=== PATIENT | male | born 1960 | race Caucasian/White ===

== ENCOUNTER 2022-04-06 00:56 | Emergency (ER) | payer OTHER ==
[2022-04-06] MEDS ORDERED: ONDANSETRON 4 MG/2 ML VIAL IVP STA (01:37)
[2022-04-06] MEDS ORDERED: MORPHINE 2 MG/ML CARPUJECT IVP STA (01:37)
[2022-04-06] MEDS ORDERED: SODIUM CHLORIDE 0.9% 1,000 ML IV STA (01:37)
--- NOTE | 2022-04-06 01:42 | ED Physician Documentation ---
PD HPI ABD PAIN - Stated complaint Stated Complaint: chest pain - Chief complaint Chief Complaint: Abd Pain - History obtained from History obtained from: Patient - Additional information Additional information: Patient is a 61-year-old male with a history of coronary artery disease presenting for evaluation of left flank pain that woke him up approximately 1 hour ago. It is throbbing in nature. It does not radiate. Nothing makes it better or worse. He has associated nausea and dry heaves. He denies dysuria or hematuria. He reported chills earlier. He denies known fever, chest pain, difficulty breathing. He denies any activity that would have triggered this pain In his back.He denies any discomfort to his lower extremities. He has not taken anything for the pain. He denies a history of kidney stones. Review of Systems Constitutional: denies: Fever Nose: denies: Congestion Cardiac: denies: Chest pain / pressure Respiratory: denies: Dyspnea, Cough GI: reports: Nausea, Vomiting (Dry heaves). denies: Abdominal Pain, Bloody / black stool : denies: Dysuria, Hematuria Skin: denies: Rash Musculoskeletal: reports: Back pain (Left flank) Neurologic: denies: Headache, Head injury PD PAST MEDICAL HISTORY - Present Medications Home Medications: Ambulatory Orders Medication Instructions Recorded Confirmed Ondansetron Odt [Zofran] 4 mg TL Q6H PRN #10 tablet 04/06/22 Oxycodone HCl/Acetaminophen 1 each PO Q6H PRN #14 tablet 04/06/22 [Percocet 5-325 mg Tablet] Tamsulosin [Flomax] 0.4 mg PO DAILY #14 cap 04/06/22 - Allergies Allergies/Adverse Reactions: Allergies Allergy/AdvReac Type Severity Reaction Status Date / Time No Known Drug Allergies Allergy Verified 04/06/22 01:51 PD ED PE NORMAL - General General: Alert and oriented X 3, No acute distress, Well developed/nourished - HEENT HEENT: Atraumatic, Moist mucous membranes - Neck Neck: Supple, no meningeal sign - Cardiac Cardiac: RRR, No murmur, Strong equal pulses - Respiratory Respiratory: No respiratory distress, Clear bilaterally - Abdomen Abdomen: Normal bowel sounds, Soft, Non tender, Non distended - Back Back: No spinal TTP, Other (Left CVA tenderness) - Derm Derm: Warm and dry - Extremities Extremities: No edema - Neuro Neuro: Normal speech Results - Vitals Vitals: Vital Signs - 24 hr 04/06/22 04/06/22 04/06/22 01:19 02:32 03:00 Temperature 37.3 C Heart Rate 80 88 85 Respiratory 20 22 14 Rate Blood Pressure 158/84 H 101/53 L O2 Saturation 96 99 98 04/06/22 03:48 Temperature Heart Rate 84 Respiratory 16 Rate Blood Pressure 101/53 L O2 Saturation 96 Oxygen O2 Source Room air - EKG (time done) 0142 Rate: Rate (enter#) (78) Rhythm: NSR [place]: Normal Ischemia: No: ST elevation c/w ischemia - Labs Labs: Laboratory Tests 04/06/22 04/06/22 04/06/22 01:43 01:43 02:40 WBC 13.0 H RBC 4.21 L Hgb 13.6 L Hct 40.0 L MCV 95.0 H MCH 32.3 H MCHC 34.0 RDW 13.2 Plt Count 310 MPV 8.9 Neut # (Auto) 6.9 H Lymph # (Auto) 4.5 H [place] # (Auto) 1.2 H Eos # (Auto) 0.3 Baso # (Auto) 0.0 Absolute Nucleated RBC 0.00 Nucleated RBC % 0.0 Sodium 141 Potassium 3.9 Chloride 104 Carbon Dioxide 28 Anion Gap 9.0 BUN 21 H Creatinine 0.9 Estimated GFR (MDRD) 86 L Glucose 137 H Calcium 9.4 Total Bilirubin 0.2 AST 20 ALT 21 Alkaline Phosphatase 47 Total Protein 7.2 Albumin 4.4 Globulin 2.8 Albumin/Globulin Ratio 1.6 Lipase 43 Urine Color DARK YELLOW Urine Clarity HAZY Urine pH 5.5 Ur Specific [place] >=1.030 H Urine Protein 100 H Urine Glucose (UA) 250 H Urine Ketones TRACE Urine Occult Blood LARGE H Urine Nitrite NEGATIVE Urine Bilirubin NEGATIVE Urine Urobilinogen 0.2 (NORMAL) Ur Leukocyte Esterase NEGATIVE Urine RBC TNTC H Urine WBC 0-3 Ur Squamous Epith Cells RARE Squamous Urine Crystals 3-5 Calcium Oxalate Urine Bacteria Rare Urine Mucus Moderate Strands Ur Microscopic Review INDICATED Urine Culture Comments NOT INDICATED PD MEDICAL DECISION MAKING - ED course Complexity details: reviewed results, re-evaluated patient, d/w patient, d/w family ED course: Patient with left flank pain. EKG was ordered from triage. Doubt ACS as the cause of his symptoms. Labs and CT scan were obtained and work-up revealed 2 mm left ureter stone. Patient does not appear septic. Normal renal function. Pain was well controlled. Discussed management of ureter stone as well as need for follow-up. Patient is comfortable with plan for discharge and advised on return precautions. Departure - Departure Disposition: 01 Home, Self Care Clinical Impression: Left ureteral stone Condition: Stable Instructions: ED Stone Renal W Colic Prescriptions: Tamsulosin [Flomax] 0.4 mg PO DAILY #14 cap Oxycodone HCl/Acetaminophen [Percocet 5-325 mg Tablet] 1 each PO Q6H PRN #14 tablet PRN Reason: pain Ondansetron Odt [Zofran] 4 mg TL Q6H PRN #10 tablet PRN Reason: Nausea / Vomiting Comments: You were evaluated for pain to your left flank and found to have a 2 mm stone in your left ureter. This is a stone coming out of your kidney and making its way to your bladder. I have prescribed medications to help you pass the stone including a narcotic medication, something for nausea and Flomax. Please make sure to drink plenty of water. Please call [place] for a close follow-up appointment. If you have any worsening symptoms such as fever, increased pain, vomiting that is not controlled with your medication then please return to the emergency department. I have sent your prescriptions to [facility] in [place]. I am prescribing a short course of narcotic pain medication for you. These are potentially dangerous and addictive medications that should be used carefully. These medications may constipate you. Take an [id number] stool softener (docusate) twice daily with plenty of water while taking these medications. If you go 24 hours without a bowel movement, take [id number] miralax, per package instructions. Do not drink or drive while taking these medications. If you received narcotic or sedating medications while in the emergency department, do not drive for 24 hours. Store this medication in a safe, secure place and out of reach of children. It is a violation of federal law to give or sell this medication to another person or to use in a manner other than prescribed. The ED will not refill narcotic prescriptions, including prescriptions lost or stolen. To dispose of unwanted medications: 1. [facility] at [address] in [place] has a medication drop box. They accept prescription medications (in pill form) Friday through Friday 9:00 a.m. to 5:00 p.m. 2. The [facility] [employer] accepts prescription medications (in pill form only) for disposal year round. Call for more information. 3. Contact the [facility] for the next [facility] sponsored prescription drug collection event. , [phone], or [phone]; Note that many narcotic pain relievers also contain Tylenol/acetaminophen. Please ensure that your total dose of acetaminophen from all sources does not exceed 3 g (3000 mg) per day. Discharge Date/Time: 04/06/22 04:20
[2022-04-06 01:55] LABS: BASOPHILS % (AUTO) 0.3 %; EOSINOPHILS # (AUTO) 0.3 10^3/uL (0.0-0.7); HGB - HEMOGLOBIN 13.6 g/dL (14.0-18.0); LYMPHOCYTES # (AUTO) 4.5 10^3/uL (1.5-3.5); LYMPHOCYTES % (AUTO) 34.8 %; MEAN CORPUSCULAR HEMOGLOBIN 32.3 pg (27.0-31.0); MEAN PLATELET VOLUME 8.9 fL (7.4-11.4); MONOCYTES # (AUTO) 1.2 10^3/uL (0.0-1.0); MONOCYTES % (AUTO) 9.5 %; NEUTROPHILS # (AUTO) 6.9 10^3/uL (1.5-6.6); NEUTROPHILS % (AUTO) 53.1 %; PLT - PLATELET COUNT 310 10^3/uL (130-450); RED BLOOD COUNT 4.21 10^6/uL (4.70-6.10); RED CELL DISTRIBUTION WIDTH 13.2 % (12.0-15.0)
[2022-04-06 02:08] LABS: ALBUMIN 4.4 g/dL (3.2-5.5); ALBUMIN/GLOBULIN RATIO 1.6 (1.0-2.2); BILIRUBIN,TOTAL 0.2 mg/dL (0.2-1.0); CALCIUM 9.4 mg/dL (8.5-10.3); CREATININE 0.9 mg/dL (0.6-1.2); POTASSIUM 3.9 mmol/L (3.5-5.0); TOTAL PROTEIN 7.2 g/dL (6.7-8.2)
[2022-04-06] MEDS ORDERED: KETOROLAC 30 MG/ML VIAL IVP STA (02:45)
[2022-04-06] MEDS ORDERED: HYDROmorphone 1 MG/ML CARPUJECT IVP STA (02:45)
[2022-04-06 03:21] LABS: GLUCOSE, URINE (UA) 250 mg/dL (NEGATIVE); KETONES,URINE (UA) TRACE mg/dL (NEGATIVE); LEUKOCYTE ESTERASE, URINE NEGATIVE (NEGATIVE); NITRITE,URINE NEGATIVE (NEGATIVE); OCCULT BLOOD,URINE LARGE (NEGATIVE); PH,URINE 5.5 PH (5.0-7.5); PROTEIN,URINE 100 mg/dL (NEGATIVE); UROBILINOGEN,URINE 0.2 (NORMAL) E.U./dL (NORMAL)
[2022-04-06 03:22] LABS: CLARITY,URINE HAZY (CLEAR)
[2022-04-06 03:24] LABS: BILIRUBIN,URINE NEGATIVE (NEGATIVE); ICTOTEST,URINE NEGATIVE
[2022-04-06 03:28] LABS: BACTERIA,URINE Rare /HPF (None Seen); CRYSTALS,URINE 3-5 Calcium Oxalate /LPF; MUCUS,URINE Moderate Strands; RBC,URINE TNTC /HPF (0-5); SQUAMOUS EPITHELIAL CELL,UR RARE Squamous (<= Few); WBC,URINE 0-3 /HPF (0-3)
[2022-04-06] MEDS ORDERED: ONDANSETRON ODT 4 MG Prepack 2 TL PRN (03:38)
[2022-04-06] MEDS ORDERED: oxyCODONE/ACET 5/325 Prepack 4 PO STA (03:38)
[2022-04-06 03:43] VITALS: BP 101/53
--- NOTE | 2022-04-06 09:09 | CT Report ---
PROCEDURE: Abdomen/Pelvis WO INDICATIONS: L flank pain TECHNIQUE: Noncontrast 5 mm thick sections acquired from the diaphragms to the symphysis. 5 mm coronal and sagi ttal reformats were then performed. For radiation dose reduction, the following was used: automated exposure control, adjustment of mA and/or kV according to patient size. COMPARISON: None. FINDINGS: Image quality: Excellent. ABDOMEN: Lung bases: Lung bases are clear. Heart size is normal. Solid organs: Liver and spleen are normal in size. Gallbladder is normal Pancreas is normal in con tours. No adrenal nodules. 2 mm left ureteral calculus at the level of L3/4 with mild collecting sys tem dilatation proximally. Peritoneum and bowel: Small sliding hiatal hernia. Unenhanced bowel loops demonstrate normal wall th ickness and caliber. No free fluid or air. Nodes and vessels: No retroperitoneal or mesenteric adenopathy by size criteria. Aorta and inferior vena cava are normal in caliber. Miscellaneous: No ventral hernias. PELVIS: Genitourinary: Bladder wall thickness is normal. Miscellaneous: No inguinal hernias or adenopathy. Bones: No suspicious bony lesions. No vertebral body compression fractures. IMPRESSION: 2 mm proximal left ureteral calculus with mild left hydroureteronephrosis. Findings above correspond with preliminary findings by [facility]. Reviewed by: Will Monteiro on 04/06/2022 8:08 AM SACHI Approved by: Will Monteiro on 04/06/2022 8:08 AM SACHI Station ID: [id number]
== END 2022-04-06 04:20 | disposition home or self-care (01) ==
LOC: ED 00:56
DX: N13.2 Hydronephrosis with renal and ureteral calculous obstruction (principal)
CPT/HCPCS: 36415; 74176; 80053; 81001; 83690; 85025; 93005; 96374; 96375; 99284; 99285; J1170; 81003; 87086

== ENCOUNTER 2022-04-06 18:38 | Emergency (ER) | payer OTHER ==
[2022-04-06 20:27] LABS: BASOPHILS % (AUTO) 0.2 %; EOSINOPHILS % (AUTO) 0.1 %; HCT - HEMATOCRIT 40.2 % (42.0-52.0); HGB - HEMOGLOBIN 13.9 g/dL (14.0-18.0); LYMPHOCYTES % (AUTO) 8.5 %; MEAN CORPUSCULAR HEMOGLOBIN 32.5 pg (27.0-31.0); MEAN CORPUSCULAR HGB CONC 34.6 g/dL (32.0-36.0); MEAN CORPUSCULAR VOLUME 93.9 fL (80.0-94.0); MONOCYTES % (AUTO) 8.3 %; NEUTROPHILS % (AUTO) 82.5 %; PLT - PLATELET COUNT 296 10^3/uL (130-450); RED BLOOD COUNT 4.28 10^6/uL (4.70-6.10); RED CELL DISTRIBUTION WIDTH 13.1 % (12.0-15.0); WHITE BLOOD COUNT 23.5 x10^3/uL (4.8-10.8)
[2022-04-06 20:34] LABS: ABNORMAL LYMPHS % (MANUAL) 0 %
[2022-04-06 20:40] LABS: ALBUMIN 4.7 g/dL (3.2-5.5); ALBUMIN/GLOBULIN RATIO 1.5 (1.0-2.2); BILIRUBIN,TOTAL 0.8 mg/dL (0.2-1.0); CALCIUM 9.9 mg/dL (8.5-10.3); CREATININE 1.3 mg/dL (0.6-1.2); POTASSIUM 4.2 mmol/L (3.5-5.0); TOTAL PROTEIN 7.8 g/dL (6.7-8.2)
[2022-04-06 20:56] LABS: BAND NEUTROPHILS % (MANUAL) 1 %; DIFFERENTIAL COMMENT MANUAL DIFFERENTIAL; LYMPHOCYTES # (MANUAL) 2.6 10^3/uL (1.5-3.5); LYMPHOCYTES % (MANUAL) 11 %; MONOCYTES # (MANUAL) 1.2 10^3/uL (0.0-1.0); NEUTROPHILS # (MANUAL) 19.7 10^3/uL (1.5-6.6); PLATELET ESTIMATE, MANUAL NORMAL (130-450,000) (NORMAL); PLATELET MORPHOLOGY NORMAL APPEARANCE (NORMAL); RBC MORPHOLOGY (MULTIPLE) NORMAL APPEARANCE (NORMAL)
--- NOTE | 2022-04-06 21:02 | ED Physician Documentation ---
History of Present Illness - Stated complaint Stated Complaint: L SIDE PX - Chief complaint Chief Complaint: General - History obtained from History obtained from: Patient - Additonal information Additional information: Patient is a 61-year-old male presenting for evaluation of worsening left flank pain. He was seen yesterday in the emergency department and diagnosed with a 2 mm proximal left ureter stone. He was discharged home on Percocet and had been doing well earlier today. The pain worsened this evening and he was not able to get it back under control. He did take 2 Percocet this evening without improvement. The pain is sharp. It does not radiate. He has associated nausea which is improved with Zofran. No vomiting, dysuria or hematuria. No fevers or chills. Review of Systems Constitutional: denies: Fever Nose: denies: Congestion Throat: denies: Sore throat Cardiac: denies: Chest pain / pressure Respiratory: denies: Dyspnea, Cough GI: reports: Abdominal Pain, Nausea : denies: Dysuria Musculoskeletal: reports: Back pain Neurologic: denies: Headache PD PAST MEDICAL HISTORY - Present Medications Home Medications: Ambulatory Orders Medication Instructions Recorded Confirmed Aspirin [Aspirin EC] 81 mg PO DAILY 04/06/22 04/06/22 Glipizide [Glipizide Xl] 10 mg PO DAILY 04/06/22 04/06/22 Insulin NPH Human [Humulin N] 40 unit SQ HS 04/06/22 04/06/22 Losartan Potassium 25 mg PO DAILY 04/06/22 04/06/22 Metformin HCl [Metformin ER 500 mg PO DAILY 04/06/22 04/06/22 Gastric] Ondansetron Odt [Zofran] 4 mg TL Q6H PRN #10 tablet 04/06/22 04/06/22 Oxycodone HCl/Acetaminophen 1 each PO Q6H PRN #14 tablet 04/06/22 04/06/22 [Percocet 5-325 mg Tablet] Rosuvastatin Calcium [Crestor] 40 mg PO HS 04/06/22 04/06/22 Tamsulosin [Flomax] 0.4 mg PO DAILY #14 cap 04/06/22 04/06/22 traZODone [Desyrel] 50 mg PO HS PRN 04/06/22 04/06/22 Cefdinir 300 mg PO BID #14 cap 04/07/22 - Allergies Allergies/Adverse Reactions: Allergies Allergy/AdvReac Type Severity Reaction Status Date / Time No Known Drug Allergies Allergy Verified 04/06/22 18:47 PD ED PE NORMAL - General General: Alert and oriented X 3, No acute distress, Well developed/nourished - HEENT HEENT: Atraumatic, Moist mucous membranes - Neck Neck: Supple, no meningeal sign - Cardiac Cardiac: RRR, No murmur, Strong equal pulses - Respiratory Respiratory: No respiratory distress, Clear bilaterally - Abdomen Abdomen: Normal bowel sounds, Soft, Non distended, Other (Left-sided abdominal tenderness) - Back Back: No CVA TTP (Left flank tenderness) - Derm Derm: Warm and dry - Extremities Extremities: No edema - Neuro Neuro: Normal speech - Psych Psych: Normal mood Results - Vitals Vitals: Vital Signs - 24 hr 04/06/22 04/06/22 04/06/22 18:47 18:51 20:51 Temperature 37.4 C 37.4 C Heart Rate 105 H 105 H 105 H Respiratory 18 18 18 Rate Blood Pressure 164/80 H 164/80 H 164/80 H O2 Saturation 100 100 100 04/07/22 00:00 Temperature Heart Rate 100 Respiratory 16 Rate Blood Pressure 108/88 H O2 Saturation 92 Oxygen O2 Source Room air - Labs Labs: Laboratory Tests 04/06/22 04/06/22 04/06/22 20:22 20:22 21:20 WBC 23.5 H RBC 4.28 L Hgb 13.9 L Hct 40.2 L MCV 93.9 MCH 32.5 H MCHC 34.6 RDW 13.1 Plt Count 296 MPV 9.0 Neut # (Auto) Not Reportable Lymph # (Auto) Not Reportable [place] # (Auto) Not Reportable Eos # (Auto) Not Reportable Baso # (Auto) Not Reportable Absolute Nucleated RBC Not Reportable Total Counted 100 Band Neuts % (Manual) 1 Abnorm Lymph % (Manual) 0 Nucleated RBC % Not Reportable Neutrophils # (Manual) 19.7 H Lymphocytes # (Manual) 2.6 Monocytes # (Manual) 1.2 H Eosinophils # (Manual) 0.0 Basophils # (Manual) 0.0 Differential Comment MANUAL DIFFERENTIAL Platelet Estimate NORMAL (130-450,000) Platelet Morphology NORMAL APPEARANCE RBC Morph Micro Appear NORMAL APPEARANCE Sodium 133 L Potassium 4.2 Chloride 98 L Carbon Dioxide 25 Anion Gap 10.0 BUN 18 Creatinine 1.3 H Estimated GFR (MDRD) 57 L Glucose 185 H Lactic Acid 1.1 Calcium 9.9 Total Bilirubin 0.8 AST 25 ALT 22 Alkaline Phosphatase 52 Total Protein 7.8 Albumin 4.7 Globulin 3.1 Albumin/Globulin Ratio 1.5 Lipase 35 Urine Color Urine Clarity Urine pH Ur Specific [place] Urine Protein Urine Glucose (UA) Urine Ketones Urine Occult Blood Urine Nitrite Urine Bilirubin Urine Urobilinogen Ur Leukocyte Esterase Urine RBC Urine WBC Ur Squamous Epith Cells Urine Bacteria Urine Mucus Ur Microscopic Review Urine Culture Comments 04/06/22 22:30 WBC RBC Hgb Hct MCV MCH MCHC RDW Plt Count MPV Neut # (Auto) Lymph # (Auto) [place] # (Auto) Eos # (Auto) Baso # (Auto) Absolute Nucleated RBC Total Counted Band Neuts % (Manual) Abnorm Lymph % (Manual) Nucleated RBC % Neutrophils # (Manual) Lymphocytes # (Manual) Monocytes # (Manual) Eosinophils # (Manual) Basophils # (Manual) Differential Comment Platelet Estimate Platelet Morphology RBC Morph Micro Appear Sodium Potassium Chloride Carbon Dioxide Anion Gap BUN Creatinine Estimated GFR (MDRD) Glucose Lactic Acid Calcium Total Bilirubin AST ALT Alkaline Phosphatase Total Protein Albumin Globulin Albumin/Globulin Ratio Lipase Urine Color YELLOW Urine Clarity CLOUDY Urine pH 5.5 Ur Specific [place] 1.025 Urine Protein NEGATIVE Urine Glucose (UA) NEGATIVE Urine Ketones 40 H Urine Occult Blood LARGE H Urine Nitrite NEGATIVE Urine Bilirubin NEGATIVE Urine Urobilinogen 0.2 (NORMAL) Ur Leukocyte Esterase NEGATIVE Urine RBC 6-10 H Urine WBC 6-10 H Ur Squamous Epith Cells FEW Squamous Urine Bacteria Few Urine Mucus Moderate Strands Ur Microscopic Review INDICATED Urine Culture Comments NOT INDICATED PD MEDICAL DECISION MAKING - ED course Complexity details: reviewed results, re-evaluated patient, d/w patient, d/w family ED course: Patient with worsening left flank pain in the setting of known ureter stone.Labs rechecked with increased leukocytosis. Lactic is normal. He does not appear septic. He is hemodynamically stable. CT scan and repeated given elevation in white count and increased pain. No significant change. Urine analysis with bacteria and few WBC.I did review these results with on-call urologist. Patient is appropriate for outpatient management still. Blood cultures were obtained and are pending. Overall, clinically patient is well-appearing and had adequate pain control. He and his are aware of return precautions. 2331 - Discussed with Dr. Nguyen, on-call for [place] [facility]. Reviewed labs from yesterday and today with changes including elevation in WBC and creatinine. Reviewed CT results. Also discussed today's urinalysis. It does not feel the patient needs admission for the elevated white count and Bacteria and WBC noted in urine. Recommend starting patient on an antibiotic out of caution and also recommends adding a naproxen every 12 hours for pain control. Believes the patient will do well on this regiment. 2350 - Pain better after Toradol. Discussed recommendations from [place] [facility]. Patient and his are comfortable with plan for discharge and recommendations Of naproxen in addition to the Percocet. He will also take the antibiotic as recommended. He is aware of return precautions. He is planning on returning home tomorrow and is aware of need for follow-up with [place]. Departure - Departure Disposition: 01 Home, Self Care Clinical Impression: Left ureteral stone Leukocytosis Qualifiers: Leukocytosis type: other Qualified Code(s): D72.828 - Other elevated white blood cell count Condition: Stable Instructions: ED Stone Renal W Colic Prescriptions: Cefdinir 300 mg PO BID #14 cap Comments: You were evaluated for worsening pain to your left flank. On recheck of your blood work today your white count has elevated. There are also some small markers of infection in your urine. On your CT scan today your stone has moved slightly and today is measuring 3 mm. I did speak to the on-call urologist with [facility], Dr. Nguyen, Who at this time does not feel you need to be admitted to the hospital but does recommend that we have you on an antibiotic due to the elevated white count out of caution. I have given you the first dose tonight. I will also give you a prescription at that is printed so that you may take it to the pharmacy of your choice. He also recommends taking naproxen 400 mg twice a day. Please call your [place] doctors for close follow-up this week. If you have any worsening symptoms please return to the emergency department. Discharge Date/Time: 04/07/22 01:00
[2022-04-06] MEDS: ONDANSETRON 4 MG/2 ML VIAL IVP STA (21:23)
[2022-04-06] MEDS: HYDROmorphone 1 MG/ML CARPUJECT IVP STA ×2 (21:27→23:07)
[2022-04-06] MEDS: SODIUM CHLORIDE 0.9% 1,000 ML IV STA (21:34)
[2022-04-06 22:42] LABS: BILIRUBIN,URINE NEGATIVE (NEGATIVE); GLUCOSE, URINE (UA) NEGATIVE (NEGATIVE); KETONES,URINE (UA) 40 mg/dL (NEGATIVE); LEUKOCYTE ESTERASE, URINE NEGATIVE (NEGATIVE); NITRITE,URINE NEGATIVE (NEGATIVE); OCCULT BLOOD,URINE LARGE (NEGATIVE); PH,URINE 5.5 PH (5.0-7.5); PROTEIN,URINE NEGATIVE (NEGATIVE); UROBILINOGEN,URINE 0.2 (NORMAL) E.U./dL (NORMAL)
[2022-04-06 22:43] LABS: CLARITY,URINE CLOUDY (CLEAR)
--- NOTE | 2022-04-06 22:48 | CT Report ---
PROCEDURE: Abdomen/Pelvis WO INDICATIONS: known 2mm stone; worsening pain and WBC 13 to 23 TECHNIQUE: Noncontrast 5 mm thick sections acquired from the diaphragms to the symphysis. 5 mm coronal and sagi ttal reformats were then performed. For radiation dose reduction, the following was used: automated exposure control, adjustment of mA and/or kV according to patient size. COMPARISON: CT abdomen and pelvis without, 04/06/2022. FINDINGS: Image quality: Excellent. ABDOMEN: Lung bases: Bibasilar scars and atelectasis. Heart size is normal. Small hiatal hernia. Solid organs: There is a 3 mm stone in the mid left ureter, slightly advanced compared to last exam. There is moderate left hydronephrosis and perinephric stranding, increased when compared to last exa m. No right renal stone or hydronephrosis. Liver and spleen are normal in size. Gallbladder is normal Pancreas is normal in contours. No adre nal nodules. Kidneys are normal in size, without hydronephrosis or nephrolithiasis. Peritoneum and bowel: Unenhanced bowel loops demonstrate normal wall thickness and caliber. There is a moderate amounts within colon. Normal appendix. No free fluid or air. Nodes and vessels: No retroperitoneal or mesenteric adenopathy by size criteria. Aorta and inferior vena cava are normal in caliber. Moderate atherosclerotic calcification. Miscellaneous: No ventral hernias. PELVIS: Genitourinary: Bladder wall thickness is normal. Miscellaneous: Small fat-containing inguinal hernias laterally. No pelvic adenopathy. Bones: No suspicious bony lesions. No vertebral body compression fractures. Mild degenerative dise ase in lumbar spine. IMPRESSION: 1. A 3 mm stone in the mid left ureter, slightly advanced since the last CT. There is increased left hydronephrosis and perinephric stranding. Cannot exclude concomitant urinary tract infection. 2. Small hiatal hernia. Reviewed by: Christine Yee MD on 04/06/2022 10:46 PM PDT Approved by: Christine Yee MD on 04/06/2022 10:46 PM PDT Station ID: [id number]
[2022-04-06 22:57] LABS: BACTERIA,URINE Few /HPF (None Seen); MUCUS,URINE Moderate Strands; SQUAMOUS EPITHELIAL CELL,UR FEW Squamous (<= Few)
[2022-04-06] MEDS: KETOROLAC 30 MG/ML VIAL IVP STA (23:36)
[2022-04-07 00:24] VITALS: BP 108/88
[2022-04-07] MEDS: cefTRIAXone 1 GM in SODIUM CHLORIDE 0.9% MINIBAG 100 ML IV STA (00:27)
[2022-04-07] MEDS ORDERED: cefTRIAXone 1 GM VIAL ONE (00:29)
== END 2022-04-07 01:00 | disposition home or self-care (01) ==
LOC: ED 18:38
DX: N13.2 Hydronephrosis with renal and ureteral calculous obstruction (principal); D72.828 Other elevated white blood cell count
CPT/HCPCS: 36415; 74176; 80053; 81001; 83605; 83690; 85025; 87040; 96374; 96375; 96376; J1170; 81003; 87086